=== PATIENT | female | born 2000 | race Caucasian/White ===

== ENCOUNTER 2020-04-05 22:57 | Emergency (ER) | payer SELFPAY ==
[2020-04-05 23:27] VITALS: BP 102/58
[2020-04-06] MEDS ORDERED: DIPHENHYDRAMINE HCL 50 MG/ML VIAL IV ONE (00:02)
[2020-04-06] MEDS ORDERED: NORMAL SALINE 1000 ML 1,000 ML IV ONE (00:02)
[2020-04-06] MEDS ORDERED: METOCLOPRAMIDE HCL INJ/PF 10 MG/2 ML SDV IV ONE (00:02)
--- NOTE | 2020-04-06 00:05 | ER Document Report ---
ED Medical Screen (RME) - General Chief Complaint: Contusion Stated Complaint: POSSIBLE CONTUSION ON FOREHEAD Time Seen by Provider: 04/05/20 23:55 Mode of Arrival: Ambulatory Information source: Patient Notes: HPI; 20-year-old female presents to the emergency room with multiple complaints. Patient states she has had a migraine for the past 5 days and has been taking Advil and Motrin without relief. States she went to stand up tonight became dizzy and lightheaded fell forward hitting her head on the coffee table and passing out. Sustaining a large hematoma to the left side of her forehead. Also was complaining of constipation for the past several weeks. States she is only had 2 or 3 bowel movements over the past several weeks. States she has tried [id number] laxatives without relief. Denies any nausea or vomiting. States her headache is similar to her previous migraines. Denies any sudden thunderclap. Not the worst headache of her life. PE: Alert and oriented x3. Negative for bender signs, no raccoon eyes. Patient with a large hematoma to the left frontal scalp that is tender to palpation. PERRLA, EOMI cervical spine is nontender to palpation. Patient does have pain with lateral movement of the neck. Lungs: Clear to auscultation without rales, rhonchi, wheezes. Heart: Regular rate rhythm without murmurs, rubs, gallops. I have greeted and performed a rapid initial assessment of this patient. A comprehensive ED assessment and evaluation of the patient, analysis of test results and completion of the medical decision making process will be conducted by additional ED providers. I have specifically instructed the patient or family members with the patient to immediately return to any nursing staff should anything change in the patient's condition or with their chief complaint. TRAVEL OUTSIDE OF THE [place] IN LAST 30 DAYS: No Physical Exam - Vital signs Vitals: Temp Pulse Resp BP Pulse Ox 97.9 F 63 16 102/58 L 98 04/05/20 23:21 04/05/20 23:21 04/05/20 23:21 04/05/20 23:21 04/05/20 23:21 Course - Vital Signs Vital signs: Temp Pulse Resp BP Pulse Ox 97.9 F 63 16 102/58 L 98 04/05/20 23:21 04/05/20 23:21 04/05/20 23:21 04/05/20 23:21 04/05/20 23:21
[2020-04-06 00:30] LABS: ABSOLUTE BASOPHILS # (AUTO) 0.1 10^3/uL (0.0-0.2); ABSOLUTE EOSINOPHILS # (AUTO) 0.2 10^3/uL (0.0-0.6); ABSOLUTE LYMPHOCYTES (AUTO) 2.5 10^3/uL (0.5-4.7); ABSOLUTE MONOCYTES (AUTO) 0.5 10^3/uL (0.1-1.4); BASOPHILS % (AUTO) 1.1 % (0-2); HEMATOCRIT 34.9 % (36.0-47.0); HEMOGLOBIN 11.9 g/dL (12.0-15.5); LYMPHOCYTES % (AUTO) 30.6 % (13-45); MEAN CORPUSCULAR HGB CONC 34.1 g/dL (32.0-36.0); MEAN CORPUSCULAR VOLUME 88 fl (80-97); MONOCYTES % (AUTO) 6.3 % (3-13); PLATELET COUNT 260 10^3/uL (150-450); RED BLOOD COUNT 3.96 10^6/uL (3.72-5.28); TOTAL CELLS COUNTED % (AUTO) 100 %; WHITE BLOOD COUNT 8.3 10^3/uL (4.0-10.5)
[2020-04-06 00:33] LABS: APPEARANCE,URINE SLIGHTLY-CLOUDY; BILIRUBIN,URINE NEGATIVE (NEGATIVE); COLOR,URINE YELLOW; GLUCOSE, URINE NEGATIVE (NEGATIVE); KETONES,URINE NEGATIVE (NEGATIVE); LEUKOCYTE ESTERASE,URINE NEGATIVE (NEGATIVE); NITRITE,URINE NEGATIVE (NEGATIVE); PROTEIN,URINE NEGATIVE (NEGATIVE)
[2020-04-06 00:43] LABS: ALBUMIN 4.9 g/dL (3.5-5.0); ALKALINE PHOSPHATASE 50 U/L (38-126); ANION GAP 7 (5-19); ASPARTATE AMINO TRANSFERASE 27 U/L (14-36); BILIRUBIN,DIRECT 0.1 mg/dL (0.0-0.4); BILIRUBIN,TOTAL 0.3 mg/dL (0.2-1.3); BLOOD UREA NITROGEN 13 mg/dL (7-20); CALCIUM 10.1 mg/dL (8.4-10.2); CARBON DIOXIDE 30 mmol/L (22-30); CHLORIDE 103 mmol/L (98-107); GLUCOSE 83 mg/dL (75-110); POTASSIUM 4.3 mmol/L (3.6-5.0); TOTAL PROTEIN 8.1 g/dL (6.3-8.2)
[2020-04-06] MEDS ORDERED: DIPHENHYDRAMINE HCL 50 MG/ML VIAL ONE (02:06)
[2020-04-06] MEDS ORDERED: METOCLOPRAMIDE HCL INJ/PF 10 MG/2 ML SDV ONE (02:06)
--- NOTE | 2020-04-06 03:26 | RADIOLOGY REPORT (SQ) ---
CT cervical spine without contrast on 04/06/2020 at 2:50 AM CLINICAL INDICATION: Fell and hit head, per protocol for mechanism of injury TECHNIQUE: Multiple axial images are obtained throughout the cervical spine without the administration of contrast. Sagittal and coronal reformatted images are also performed and reviewed. This exam was performed according to our departmental dose-optimization program, which includes automated exposure control, adjustment of the mA and/or kV according to patient size and/or use of iterative reconstruction technique. Total DLP is 169.18 mGy*cm. COMPARISON: None FINDINGS: Reformatted images reveal normal alignment of the cervical spine. There are no acute fractures. No definite disc herniation is noted. There is no prevertebral soft tissue swelling. IMPRESSION: No acute fracture or malalignment of the cervical spine.
--- NOTE | 2020-04-06 03:28 | RADIOLOGY REPORT (SQ) ---
CT head without contrast on 04/06/2020 at 2:48 AM CLINICAL INDICATION: Fell and hit forehead, swelling TECHNIQUE: Multiple axial images are obtained throughout the head without the administration of contrast. This exam was performed according to our departmental dose-optimization program, which includes automated exposure control, adjustment of the mA and/or kV according to patient size and/or use of iterative reconstruction technique. Total DLP is 1070.38 mGy*cm. COMPARISON: None FINDINGS: There is no hydrocephalus. There is no CT evidence of acute infarct. There is no hemorrhage. There are no abnormal extra-axial fluid collections. There is no mass, mass effect or midline shift. No bony abnormality is noted. There is a small left frontal scalp hematoma. IMPRESSION: No acute intracranial abnormality.
--- NOTE | 2020-04-06 03:43 | RADIOLOGY REPORT (SQ) ---
Abdomen x-ray single view on 04/06/2020 at 3:06 AM CLINICAL INDICATION: Constipation COMPARISON: None FINDINGS: Calcification in the left pelvis is consistent with phlebolith. Bowel gas pattern is unremarkable. No increased stool to suggest constipation is noted. No other abnormal calcification or mass effect is noted. No bony abnormality is noted. IMPRESSION: Nonspecific abdomen.
--- NOTE | 2020-04-06 03:49 | ER Document Report ---
HPI - HPI Time Seen by Provider: 04/05/20 23:55 Pain Level: 3 Notes: 20-year-old female presents to the emergency room with multiple complaints. Patient states she has had a migraine for the past 5 days and has been taking Advil and Motrin without relief. States she went to stand up tonight became dizzy and lightheaded fell forward hitting her head on the coffee table and passing out. Sustaining a large hematoma to the left side of her forehead. Also was complaining of constipation for the past several weeks. States she is only had 2 or 3 bowel movements over the past several weeks. States she has tried [id number] laxatives without relief. Denies any nausea or vomiting. States her headache is similar to her previous migraines. Denies any sudden thunderclap. Not the worst headache of her life. - ROS Systems Reviewed and Negative: Yes All other systems reviewed and negative - see HPI Past Medical History - General Information source: Patient - Social History Smoking Status: Never Smoker Frequency of alcohol use: Occasional Drug Abuse: None Family History: Reviewed & Not Pertinent Neurological Medical History: Reports: Hx Migraine Surgical Hx: Negative Vertical Provider Document - CONSTITUTIONAL Notes: PHYSICAL EXAMINATION: GENERAL: Well-appearing, well-nourished and in no acute distress. HEAD: Atraumatic, normocephalic. EYES: Pupils equal round and reactive to light, extraocular movements intact, conjunctiva are normal. ENT: Nares patent, oropharynx clear without exudates. Moist mucous membranes. NECK: Normal range of motion, supple without lymphadenopathy LUNGS: Breath sounds clear to auscultation bilaterally and equal. No wheezes rales or rhonchi. HEART: Regular rate and rhythm without murmurs ABDOMEN: Soft, nontender, nondistended abdomen. No guarding, no rebound. No masses appreciated. Female : deferred Musculoskeletal: Normal range of motion, no pitting or edema. No cyanosis. NEUROLOGICAL: Cranial nerves grossly intact. Normal speech, normal gait. Normal sensory, motor exams PSYCH: Normal mood, normal affect. SKIN: Left hematoma forehead. - INFECTION CONTROL TRAVEL OUTSIDE OF THE [place] IN LAST 30 DAYS: No Course - Re-evaluation Re-evalutation: Work-up today has been reassuring. Patient reports headache resolved after administration of medications here in the emergency department. She is stable for discharge at this time. - Vital Signs Vital signs: Temp Pulse Resp BP Pulse Ox 97.9 F 63 16 102/58 L 98 04/05/20 23:21 04/05/20 23:21 04/05/20 23:21 04/05/20 23:21 04/05/20 23:21 - Laboratory Results Result Diagrams: 04/06/20 00:14 04/06/20 00:14 Laboratory Results Interpreted: 04/06/20 04/06/20 00:14 00:14 Hgb 11.9 L Hct 34.9 L Urine Urobilinogen 2.0 H Critical Laboratory Results Reviewed: No Critical Results - Radiology Results Critical Radiology Results Reviewed: No Critical Results Discharge - Discharge Clinical Impression: Constipation Qualifiers: Constipation type: unspecified constipation type Qualified Code(s): K59.00 - Constipation, unspecified Forehead contusion Qualifiers: Encounter type: initial encounter Qualified Code(s): S00.83XA - Contusion of other part of head, initial encounter Condition: Stable Disposition: HOME, SELF-CARE Additional Instructions: You have likely sustained a contusion (bruise) to your head. If you had a CT scan done, it did not show any evidence of serious injury or bleeding. Symptoms to expect from a concussion include nausea, mild to moderate headache, difficulty concentrating or sleeping, and mild lightheadedness. These symptoms should improve over the next few days to weeks. Return to the emergency department or follow-up with your primary care doctor if your symptoms are not improving over this time. Signs of a more serious head injury include vomiting, severe headache, excessive sleepiness or confusion, and weakness or numbness in your face, arms or legs. Return immediately to the Emergency Department if you experience any of these more concerning symptoms. Rest, avoid strenuous physical or mental activity, and avoid activities that could potentially result in another head injury until all your symptoms from this head injury are completely resolved for at least 2-3 weeks. If you participate in sports, get cleared by your doctor or technology trainer before returning to play. You may take ibuprofen or acetaminophen over the counter according to label instructions for mild headache or scalp soreness. For your constipation please take 1 capful of MiraLAX every day for the next 2 weeks. Then make sure you are increasing your water intake to at least 8 to 10 glasses of water per day. Follow-up with primary care. Return if worsening. Prescriptions: Polyethylene Glycol 3350 [Miralax] 1 cap PO DAILY #527 powder Forms: Return to Work
[2020-04-06] MEDS ORDERED: MAGNESIUM CITRATE 296 ML BOTTLE PO ONE (04:21)
== END 2020-04-06 05:41 | disposition home or self-care (01) ==
LOC: ER 22:57
DX: S00.83XA Contusion of other part of head, initial encounter (principal); W19.XXXA Unspecified fall, initial encounter; W22.03XA Walked into furniture, initial encounter; R51.9 Headache, unspecified; K59.00 Constipation, unspecified; R42 Dizziness and giddiness
CPT/HCPCS: 99285; 96361; 96374; 96375; 36415; 84703; 85025; 80053; 81001; 74018; 70450; 72125; J3490; J1200; J2765; J7030